=== PATIENT | female | born 1985 | race Caucasian/White ===

== ENCOUNTER → 2018-09-06 10:38 | Outpatient (CLI) | payer MEDICAID | END | disposition home or self-care (01) | LOC: D.MRI 09-03 16:30 | DX: M25.561 Pain in right knee (principal) ==

== ENCOUNTER 2019-01-17 07:47 | Day surgery (SDC) | payer MEDICAID ==
[~2019-01-17] VITALS: Ht 170.2 cm; Wt 74.4 kg
[~2019-01-17 07:47] MED LIST: LOW-OGESTREL PO; MOBIC7.5 MG PO; NORVASC5 MG PO; ULTRAM50 MG PO
[2019-01-17 08:31] LABS: HEMATOCRIT 40.2 % (36.0-48.0); HEMOGLOBIN 15.2 g/dL (12-16); MCH 39.1 pg (26.0-34.0); MCHC 37.8 g/dL (31.0-37.0); MCV 103.3 fL (80.0-100.0); MEAN PLATELET VOLUME 9.7 fL (7.4-10.4); RBC 3.89 10x6/uL (4.00-5.40); RDW 13.2 % (11.5-14.5); WBC 12.4 10x3/uL (4.8-10.8)
[2019-01-17 09:05] VITALS: BP 168/117; Ht 170.2 cm; Wt 74.4 kg
[2019-01-17 10:17] LABS: HCG URINE NEGATIVE (NEGATIVE)
[2019-01-17] MEDS ORDERED: HYDROCODON-ACE1 EA10 PO (11:27)
--- NOTE | 2019-01-17 13:13 | NUR ---
1250 ALL DISCHARGE CRITERIA MET. ALL DC INSTRUCTIONS GIVEN AND FOLLOW UP APPOINTMENT GIVEN. VOICES UNDERSTANDING. IV REMOVED WITH [facility] INTACT. DRESSED AT BEDSIDE. TAKEN OUT VIA W/C AND ASSISTED TO CAR WITH . ADVISED TO CALL OR COME BACK IF ANY PROBLEMS.
--- NOTE | 2019-01-21 10:49 | OP ---
PATIENT NAME: LUPE WHITEHEAD MEDICAL RECORD: [id number] :83 LOCATION:[facility] ADMISSION DATE: SURGEON: DONNA YAN MD DATE OF OPERATION: 01/17/2019 PREOPERATIVE DIAGNOSIS: Felon of the left index finger. POSTOPERATIVE DIAGNOSIS: Felon of the left index finger. PROCEDURE: Excisional debridement of felon of the left index finger. SURGEON: Donna Yan MD ANESTHESIA: General. INTRAOPERATIVE COMPLICATIONS: None. SUMMARY OF PATHOLOGIC FINDINGS: The felon was essentially the entire pulp of the finger. Purulence was cultured. The excisional debridement did include skin, subcutaneous tissue, portions of fat, fascia and bone less than 20 cm in aggregate. OPERATIVE SUMMARY IN DETAIL: After obtaining the appropriate preoperative orthopedic surgery consent as well as anesthetic consultation, evaluation, and clearance, the patient was brought to the operating room and placed on the operating table in supine position. After general laryngeal mask airway was administered, tourniquet was placed about the proximal aspect of the left upper extremity. It was not used during this case. Mid lateral incision was created on the radial side of the index finger through which copious purulence was immediately drained. This was then lavaged and a combination of curettage and rongeur were then used to debride all nonviable-appearing tissue. It was further lavaged and then quite simply covered with a gauze. The patient was awakened, taken to recovery room in stable condition. All final needle and sponge counts were correct. TRANSINT:[id number] Voice Confirmation ID: [id number] DOCUMENT ID: [id number] DONNA YAN MD at 1049 CC: [id number] DICTATION DATE: 01/18/19 1051 [place]: 01/18/19 1138 [facility] 01/17/19 [place] [id number]
== END 2019-01-17 12:50 | disposition home or self-care (01) ==
LOC: D.OPS 07:47 → D.PAN 09:00 → D.OPS 11:30
PROVIDERS: Anesthesiology; ATTEND Orthopaedic Surgery
DX: L03.012 Cellulitis of left finger (principal); Z01.812 Encounter for preprocedural laboratory examination

== ENCOUNTER 2019-04-19 00:34 | Emergency (ER) | payer MEDICAID ==
[~2019-04-19] VITALS: Ht 170.2 cm; Wt 71.4 kg
[~2019-04-19 00:34] MED LIST changes: +HYDROCODON-ACE1 EA10 PO
[2019-04-19 00:45] VITALS: Ht 170.2 cm; Wt 71.4 kg
[2019-04-19] MEDS ORDERED: TORADOL10 MG PO (01:54)
[2019-04-19 02:18] VITALS: BP 133/75
== END 2019-04-19 02:18 | disposition home or self-care (01) ==
LOC: D.ER 00:34
DX: M53.3 Sacrococcygeal disorders, not elsewhere classified (principal); M54.5 Low back pain